=== PATIENT | female | born 1950 | race Caucasian/White ===

== ENCOUNTER 2017-12-19 17:55 | Emergency (ER) | payer MEDICARE, BC ==
[~2017-12-19] VITALS: Ht 162.6 cm; Wt 69.4 kg
[2017-12-19] MEDS ORDERED: LOSARTAN POTASS50 MG ORAL (18:02)
[2017-12-19] MEDS ORDERED: jardiance ORAL (18:02)
[2017-12-19] MEDS ORDERED: AMLODIPINE BESYL5 MG ORAL (18:02)
[2017-12-19 18:15] VITALS: BP 158/67
[2017-12-19] MEDS ORDERED: TYLENOL EXTRA500 MG ORAL (18:48)
[2017-12-19 18:53] VITALS: BP 158/67
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
--- NOTE | 2017-12-20 10:02 | Diagnostic Imaging Report ---
Indication: Chest pain Technique: One view of the chest Comparison: none Findings: Lungs and pleural spaces are clear. Heart size is normal. Impression: Negative
== END 2017-12-19 18:53 | disposition home or self-care (01) ==
LOC: EMR 18:35
DX: S20.211A Contusion of right front wall of thorax, initial encounter (principal); V43.52XA Car driver injured in collision with other type car in traffic accident, initial encounter; Y92.410 Unspecified street and highway as the place of occurrence of the external cause; E11.9 Type 2 diabetes mellitus without complications; I10 Essential (primary) hypertension
CPT/HCPCS: 71045; 99283